=== PATIENT | male | born 1955 | race Caucasian/White ===

== ENCOUNTER 2017-09-30 08:38 | Day surgery (SDC) | payer OTHER ==
[~2017-09-30] VITALS: Ht 182.9 cm; Wt 95.3 kg
[~2017-09-30 08:38] MED LIST: AMLO10TA PO; ASPI-1265 PO; FURO-150 PO; LEVO50TA8 PO; MULT-1179 PO; OMEP-84 PO; RAMI10CA44 PO
[2017-09-30 09:19] LABS: BASOPHILS % (AUTO) 0.6 % (0-1); EOSINOPHILS # (AUTO) 0.5 X10'3 (0-0.9); EOSINOPHILS % (AUTO) 7.3 % (0-6); HEMATOCRIT 42.8 % (42.0-52.0); HEMOGLOBIN 14.9 g/dl (14.0-17.9); LYMPHOCYTES # (AUTO) 1.9 X10'3 (1.1-4.8); LYMPHOCYTES % (AUTO) 25.6 % (21-51); MEAN CORPUSCULAR HEMOGLOBIN 35.5 PG (27.0-31.0); MEAN CORPUSCULAR HGB CONC 34.9 % (33.0-36.5); MEAN CORPUSCULAR VOLUME 101.7 FL (78-98); MEAN PLATELET VOLUME 8.8 FL (7.4-10.4); MONOCYTES # (AUTO) 0.5 X10'3 (0-0.9); NEUTROPHILS # (AUTO) 4.4 X10'3 (1.8-7.7); NEUTROPHILS % (AUTO) 59.5 % (42-75); PLATELET COUNT 151 X10'3 (140-440); RED BLOOD COUNT 4.21 X10'6 (4.70-6.10); RED CELL DISTRIBUTION WIDTH 12.1 % (11.5-14.5); WHITE BLOOD COUNT 7.4 X10'3 (4.5-11.0)
[2017-09-30 09:30] VITALS: BP 133/92
[2017-09-30 09:43] VITALS: BP 139/103
[2017-09-30 09:48] VITALS: BP 146/95
[2017-09-30 09:53] VITALS: BP 142/97
[2017-09-30 09:53] LABS: ALANINE AMINOTRANSFERASE 47 U/L (12-78); ALBUMIN/GLOBULIN RATIO 1.4 (1.1-1.5); ALKALINE PHOSPHATASE 74 IU/L (46-116); ANION GAP 11 (8-16); ASPARTATE AMINO TRANSFERASE 31 U/L (10-37); BILIRUBIN,TOTAL 0.6 MG/DL (0.1-1.0); BLOOD UREA NITROGEN 17 MG/DL (7-18); BUN/CREATININE RATIO 19.5 (5.4-32.0); CALCIUM 8.8 MG/DL (8.5-10.1); CHLORIDE 103 MMOL/L (99-107); CHOL/HDL RATIO 2.7 (0.00-4.99); CHOLESTEROL 138 MG/DL (0-200); CREATININE 0.87 MG/DL (0.60-1.10); FERRITIN 134 NG/ML (26-388); GLUCOSE 110 MG/DL (70-104); HDL CHOLESTEROL 52 MG/DL (35-60); LDL CHOLESTEROL 80 MG/DL (50-100); POTASSIUM 4.3 MMOL/L (3.5-5.1); SODIUM 140 MMOL/L (135-145); TOTAL PROTEIN 6.9 G/DL (6.4-8.2); TRIGLYCERIDES 80 MG/DL (20-135); eGFR 89 ML/MIN
[2017-09-30 09:58] VITALS: BP 138/85
[2017-09-30 10:00] VITALS: BP 142/98
[2017-10-01 07:16] LABS: % FREE PSA 37.5 % (.); PSA, FREE 0.3 ng/mL
== END 2017-09-30 10:05 | disposition home or self-care (01) ==
LOC: SSTAY O 08:38
PROVIDERS: ATTEND Specialist
DX: E83.119 Hemochromatosis, unspecified (principal)
CPT/HCPCS: 36415; 80053; 80061; 82728; 84153; 84154; 84439; 84443; 85025; 99195; A6449

== ENCOUNTER 2017-10-07 09:01 | Day surgery (SDC) | payer OTHER ==
[2017-10-07 09:21] VITALS: BP 149/72
[2017-10-07 09:43] LABS: HEMATOCRIT 42.5 % (42.0-52.0); HEMOGLOBIN 14.8 g/dl (14.0-17.9); MEAN CORPUSCULAR HEMOGLOBIN 35.5 PG (27.0-31.0); MEAN CORPUSCULAR HGB CONC 34.9 % (33.0-36.5); MEAN CORPUSCULAR VOLUME 101.8 FL (78-98); MEAN PLATELET VOLUME 8.9 FL (7.4-10.4); PLATELET COUNT 151 X10'3 (140-440); RED BLOOD COUNT 4.18 X10'6 (4.70-6.10); RED CELL DISTRIBUTION WIDTH 12.4 % (11.5-14.5); WHITE BLOOD COUNT 6.8 X10'3 (4.5-11.0)
[2017-10-07 09:55] VITALS: BP 153/106
[2017-10-07 10:00] VITALS: BP 154/112
[2017-10-07 10:04] VITALS: BP 164/109
[2017-10-07 10:09] VITALS: BP 168/88
== END 2017-10-07 10:14 | disposition home or self-care (01) ==
LOC: SSTAY O 09:01
PROVIDERS: ATTEND Specialist
DX: E83.119 Hemochromatosis, unspecified (principal)
CPT/HCPCS: 36415; 85027; 99195

== ENCOUNTER 2017-10-14 08:46 | Day surgery (SDC) | payer OTHER ==
[~2017-10-14] VITALS: Ht 182.9 cm; Wt 93.0 kg
[2017-10-14 09:07] LABS: HEMATOCRIT 43.4 % (42.0-52.0); HEMOGLOBIN 15.2 g/dl (14.0-17.9); MEAN CORPUSCULAR HEMOGLOBIN 35.3 PG (27.0-31.0); MEAN CORPUSCULAR HGB CONC 34.9 % (33.0-36.5); MEAN CORPUSCULAR VOLUME 101.2 FL (78-98); MEAN PLATELET VOLUME 8.4 FL (7.4-10.4); PLATELET COUNT 182 X10'3 (140-440); RED BLOOD COUNT 4.29 X10'6 (4.70-6.10); RED CELL DISTRIBUTION WIDTH 12.5 % (11.5-14.5); WHITE BLOOD COUNT 8.7 X10'3 (4.5-11.0)
[2017-10-14 09:09] VITALS: BP 166/117
[2017-10-14 09:23] VITALS: BP 158/111
[2017-10-14 09:28] VITALS: BP 164/116
[2017-10-14 09:33] VITALS: BP 159/111
[2017-10-14 09:38] VITALS: BP 165/110
== END 2017-10-14 09:40 | disposition home or self-care (01) ==
LOC: SSTAY O 08:46
PROVIDERS: ATTEND Specialist
DX: E83.119 Hemochromatosis, unspecified (principal)
CPT/HCPCS: 36415; 85027; 99195

== ENCOUNTER 2017-11-18 08:48 | Day surgery (SDC) | payer OTHER ==
[~2017-11-18] VITALS: Ht 182.9 cm; Wt 95.5 kg
[2017-11-18 09:18] VITALS: BP 170/110
[2017-11-18 09:18] LABS: BASOPHILS % (AUTO) 0.4 % (0-1); EOSINOPHILS # (AUTO) 0.3 X10'3 (0-0.9); EOSINOPHILS % (AUTO) 4.8 % (0-6); HEMATOCRIT 45.5 % (42.0-52.0); HEMOGLOBIN 15.9 g/dl (14.0-17.9); LYMPHOCYTES # (AUTO) 1.7 X10'3 (1.1-4.8); LYMPHOCYTES % (AUTO) 24.9 % (21-51); MEAN CORPUSCULAR HEMOGLOBIN 33.5 PG (27.0-31.0); MEAN CORPUSCULAR VOLUME 95.6 FL (78-98); MEAN PLATELET VOLUME 8.9 FL (7.4-10.4); MONOCYTES # (AUTO) 0.5 X10'3 (0-0.9); MONOCYTES % (AUTO) 7.2 % (2-12); NEUTROPHILS # (AUTO) 4.2 X10'3 (1.8-7.7); NEUTROPHILS % (AUTO) 62.7 % (42-75); PLATELET COUNT 166 X10'3 (140-440); RED BLOOD COUNT 4.76 X10'6 (4.70-6.10); RED CELL DISTRIBUTION WIDTH 12.9 % (11.5-14.5); WHITE BLOOD COUNT 6.7 X10'3 (4.5-11.0)
[2017-11-18 09:32] VITALS: BP 161/112
[2017-11-18 09:36] VITALS: BP 162/114
[2017-11-18 09:41] VITALS: BP 156/113
[2017-11-18 09:46] VITALS: BP 159/114
[2017-11-18 09:50] VITALS: BP 162/105
[2017-11-18 09:51] LABS: ALBUMIN 4.3 G/DL (3.4-5.0); ANION GAP 12 (8-16); BILIRUBIN,TOTAL 0.6 MG/DL (0.1-1.0); BLOOD UREA NITROGEN 18 MG/DL (7-18); BUN/CREATININE RATIO 20.5 (5.4-32.0); CHLORIDE 104 MMOL/L (99-107); CREATININE 0.88 MG/DL (0.60-1.10); FERRITIN 43 NG/ML (26-388); GLUCOSE 122 MG/DL (70-104); SODIUM 141 MMOL/L (135-145); TOTAL CARBON DIOXIDE 24.7 MMOL/L (24-32); TOTAL PROTEIN 7.3 G/DL (6.4-8.2); eGFR 87 ML/MIN
[2017-11-18 09:52] LABS: ALANINE AMINOTRANSFERASE 49 U/L (12-78); ALBUMIN/GLOBULIN RATIO 1.4 (1.1-1.5); ALKALINE PHOSPHATASE 84 IU/L (46-116); ASPARTATE AMINO TRANSFERASE 34 U/L (10-37); POTASSIUM 4.1 MMOL/L (3.5-5.1)
== END 2017-11-18 09:55 | disposition home or self-care (01) ==
LOC: SSTAY O 08:48
PROVIDERS: ATTEND Specialist
DX: E83.119 Hemochromatosis, unspecified (principal); I10 Essential (primary) hypertension; K21.9 Gastro-esophageal reflux disease without esophagitis; M19.90 Unspecified osteoarthritis, unspecified site; F32.9 Major depressive disorder, single episode, unspecified; F41.9 Anxiety disorder, unspecified; Z90.49 Acquired absence of other specified parts of digestive tract; Z87.891 Personal history of nicotine dependence; Z98.890 Other specified postprocedural states; Z72.89 Other problems related to lifestyle; Z79.82 Long term (current) use of aspirin; Z79.899 Other long term (current) drug therapy
CPT/HCPCS: 36415; 80053; 82103; 82728; 85025; 99195

== ENCOUNTER 2019-01-29 08:16 | Outpatient (CLI) | payer OTHER ==
[2019-01-29 09:00] LABS: BASOPHILS # (AUTO) 0.1 X10'3 (0-0.2); BASOPHILS % (AUTO) 0.8 % (0-1); EOSINOPHILS # (AUTO) 0.4 X10'3 (0-0.9); EOSINOPHILS % (AUTO) 5.7 % (0-6); HEMATOCRIT 46.2 % (42.0-52.0); HEMOGLOBIN 16.4 g/dl (14.0-17.9); LYMPHOCYTES # (AUTO) 1.9 X10'3 (1.1-4.8); LYMPHOCYTES % (AUTO) 27.2 % (21-51); MEAN CORPUSCULAR HEMOGLOBIN 34.9 PG (27.0-31.0); MEAN CORPUSCULAR HGB CONC 35.5 g/dL (33.0-36.5); MEAN CORPUSCULAR VOLUME 98.4 FL (78-98); MEAN PLATELET VOLUME 9.1 FL (7.4-10.4); MONOCYTES # (AUTO) 0.5 X10'3 (0-0.9); MONOCYTES % (AUTO) 7.2 % (2-12); NEUTROPHILS # (AUTO) 4.2 X10'3 (1.8-7.7); NEUTROPHILS % (AUTO) 59.1 % (42-75); PLATELET COUNT 166 X10'3 (140-440); RED CELL DISTRIBUTION WIDTH 13.2 % (11.5-14.5); WHITE BLOOD COUNT 7.2 X10'3 (4.5-11.0)
[2019-01-29 09:26] LABS: % IRON SATURATION 92 % (11-46); ALANINE AMINOTRANSFERASE 56 U/L (12-78); ALBUMIN 4.2 G/DL (3.4-5.0); ALBUMIN/GLOBULIN RATIO 1.5 (1.1-1.5); ALKALINE PHOSPHATASE 83 IU/L (46-116); ANION GAP 6 (8-16); ASPARTATE AMINO TRANSFERASE 30 U/L (10-37); BILIRUBIN,TOTAL 0.7 MG/DL (0.1-1.0); BLOOD UREA NITROGEN 22 MG/DL (7-18); BUN/CREATININE RATIO 26.5 (5.4-32.0); CHLORIDE 105 MMOL/L (99-107); CHOL/HDL RATIO 3.3 (0.00-4.99); CHOLESTEROL 144 MG/DL (0-200); CREATININE 0.83 MG/DL (0.60-1.10); FERRITIN 143 NG/ML (26-388); GLUCOSE 121 MG/DL (70-104); HDL CHOLESTEROL 43 MG/DL (35-60); IRON 303 UG/DL (53-167); LDL CHOLESTEROL 86 MG/DL (50-100); SODIUM 140 MMOL/L (135-145); TOTAL CARBON DIOXIDE 28.8 MMOL/L (24-32); TOTAL IRON BINDING CAPACITY 328 UG/DL (259-388); TRIGLYCERIDES 183 MG/DL (20-135); eGFR > 90 ML/MIN
[2019-01-29 09:33] LABS: HEMOGLOBIN A1C 5.6 % (4.5-6.2)
[2019-01-30 08:10] LABS: PSA, ULTRASENSITIVE W/O SERIAL 0.847 ng/mL (0.000-4.000)
[2019-01-30 13:25] LABS: AFP,SERUM, TUMOR MARKER 2.4 ng/mL (0.0-8.3)
== END 2019-01-29 23:59 | disposition home or self-care (01) ==
LOC: RAD 08:16
PROVIDERS: ATTEND Specialist
DX: R16.0 Hepatomegaly, not elsewhere classified (principal); E83.119 Hemochromatosis, unspecified; R94.5 Abnormal results of liver function studies; I10 Essential (primary) hypertension; Z90.49 Acquired absence of other specified parts of digestive tract; Z87.891 Personal history of nicotine dependence
CPT/HCPCS: 36415; 76700; 80053; 80061; 82103; 82728; 83036; 83540; 83550; 84153; 85025

== ENCOUNTER 2019-02-03 11:23 | Outpatient (CLI) | payer OTHER | END 2019-02-03 23:59 | disposition home or self-care (01) | LOC: LAB 11:23 | PROVIDERS: ATTEND Specialist | DX: E03.9 Hypothyroidism, unspecified (principal); I10 Essential (primary) hypertension; Z87.891 Personal history of nicotine dependence | CPT/HCPCS: 36415; 84439; 84443 ==

== ENCOUNTER 2019-02-25 08:56 | Day surgery (SDC) | payer OTHER ==
[2019-02-25 09:30] VITALS: BP 165/104
[2019-02-25 10:07] LABS: HEMATOCRIT 45.7 % (42.0-52.0); HEMOGLOBIN 16.2 g/dl (14.0-17.9); MEAN CORPUSCULAR HEMOGLOBIN 34.5 PG (27.0-31.0); MEAN CORPUSCULAR HGB CONC 35.5 g/dL (33.0-36.5); MEAN CORPUSCULAR VOLUME 97.1 FL (78-98); MEAN PLATELET VOLUME 9.2 FL (7.4-10.4); PLATELET COUNT 191 X10'3 (140-440); RED BLOOD COUNT 4.71 X10'6 (4.70-6.10); WHITE BLOOD COUNT 7.7 X10'3 (4.5-11.0)
[2019-02-25 10:21] VITALS: BP 151/106
[2019-02-25 10:26] VITALS: BP 148/99
[2019-02-25 10:31] VITALS: BP 149/100
[2019-02-25 10:36] VITALS: BP 147/98
[2019-02-25 10:41] VITALS: BP 134/105
== END 2019-02-25 10:50 | disposition home or self-care (01) ==
LOC: SSTAY O 08:56
PROVIDERS: ATTEND Specialist
DX: E83.119 Hemochromatosis, unspecified (principal)
CPT/HCPCS: 36415; 85027; 99195

== ENCOUNTER 2019-03-11 09:47 | Day surgery (SDC) | payer OTHER ==
[~2019-03-11] VITALS: Ht 182.9 cm; Wt 95.4 kg
[2019-03-11 10:13] LABS: HEMATOCRIT 42.9 % (42.0-52.0); MEAN CORPUSCULAR HEMOGLOBIN 34.2 PG (27.0-31.0); MEAN CORPUSCULAR VOLUME 97.9 FL (78-98); MEAN PLATELET VOLUME 8.9 FL (7.4-10.4); PLATELET COUNT 173 X10'3 (140-440); RED BLOOD COUNT 4.38 X10'6 (4.70-6.10); RED CELL DISTRIBUTION WIDTH 12.7 % (11.5-14.5); WHITE BLOOD COUNT 7.1 X10'3 (4.5-11.0)
[2019-03-11 10:25] VITALS: BP 135/88
[2019-03-11 10:50] VITALS: BP 132/91
[2019-03-11 10:55] VITALS: BP 129/90
[2019-03-11 11:00] VITALS: BP 133/86
[2019-03-11 11:05] VITALS: BP 131/91
== END 2019-03-11 11:10 | disposition home or self-care (01) ==
LOC: SSTAY O 09:47
PROVIDERS: ATTEND Specialist
DX: E83.119 Hemochromatosis, unspecified (principal)
CPT/HCPCS: 36415; 85027; 99195

== ENCOUNTER 2019-04-08 08:47 | Day surgery (SDC) | payer OTHER, MEDICARE ==
[2019-04-08] VITALS (7 sets, daily range): BP systolic 126–135; BP diastolic 76–84
[~2019-04-08 08:47] MED LIST changes: -FURO-150 PO
[2019-04-08 09:41] LABS: HEMOGLOBIN 15.2 g/dl (14.0-17.9); MEAN CORPUSCULAR HEMOGLOBIN 33.9 PG (27.0-31.0); MEAN CORPUSCULAR HGB CONC 34.5 g/dL (33.0-36.5); MEAN CORPUSCULAR VOLUME 98.1 FL (78-98); MEAN PLATELET VOLUME 9.6 FL (7.4-10.4); PLATELET COUNT 170 X10'3 (140-440); RED BLOOD COUNT 4.48 X10'6 (4.70-6.10); RED CELL DISTRIBUTION WIDTH 12.5 % (11.5-14.5); WHITE BLOOD COUNT 6.8 X10'3 (4.5-11.0)
== END 2019-04-08 08:55 | disposition home or self-care (01) ==
LOC: SSTAY O 08:47
PROVIDERS: ATTEND Specialist
DX: E83.119 Hemochromatosis, unspecified (principal)
CPT/HCPCS: 36415; 85027; 99195

== ENCOUNTER 2019-04-22 08:24 | Day surgery (SDC) | payer MEDICARE, OTHER ==
[2019-04-22] VITALS (9 sets, daily range): BP systolic 120–127; BP diastolic 72–93
[~2019-04-22] VITALS: Ht 182.9 cm; Wt 93.7 kg
[2019-04-22 09:15] LABS: BASOPHILS # (AUTO) 0.1 X10'3 (0-0.2); EOSINOPHILS # (AUTO) 0.5 X10'3 (0-0.9); EOSINOPHILS % (AUTO) 5.9 % (0-6); HEMATOCRIT 40.9 % (42.0-52.0); HEMOGLOBIN 14.1 g/dl (14.0-17.9); LYMPHOCYTES # (AUTO) 2.2 X10'3 (1.1-4.8); LYMPHOCYTES % (AUTO) 27.9 % (21-51); MEAN CORPUSCULAR HEMOGLOBIN 33.2 PG (27.0-31.0); MEAN CORPUSCULAR HGB CONC 34.5 g/dL (33.0-36.5); MEAN CORPUSCULAR VOLUME 96.2 FL (78-98); MEAN PLATELET VOLUME 9.5 FL (7.4-10.4); MONOCYTES # (AUTO) 0.7 X10'3 (0-0.9); MONOCYTES % (AUTO) 8.9 % (2-12); NEUTROPHILS # (AUTO) 4.5 X10'3 (1.8-7.7); NEUTROPHILS % (AUTO) 56.3 % (42-75); PLATELET COUNT 177 X10'3 (140-440); RED BLOOD COUNT 4.25 X10'6 (4.70-6.10); RED CELL DISTRIBUTION WIDTH 12.2 % (11.5-14.5); WHITE BLOOD COUNT 7.9 X10'3 (4.5-11.0)
--- NOTE | 2019-04-22 10:30 | NUR ---
PRE OP VITALS OBTAINED, 18g CATHETER PLACED TO RIGHT ANTECUBITAL, [id number]: THERAPEUTIC PHLEBOTOMY DRAW WITH 60ML SYRINGE n3=671+ ML BLOOD DRAWN AND DISCARDED IN RED WASTE. PT TOLERATED PROCEDURE WELL, VS REMAINED STABLE THROUGHOUT. SITE PRESSURE WRAPPED WITH 2X2 AND COBAN. PT D/C AMBULATORY W/BASELINE GAIT, DENIES PAIN/DIZZINESS/SOB
== END 2019-04-22 10:30 | disposition home or self-care (01) ==
LOC: SSTAY O 08:24
PROVIDERS: ATTEND Specialist
DX: E83.119 Hemochromatosis, unspecified (principal)
CPT/HCPCS: 36415; 85025; 99195

== ENCOUNTER 2019-05-14 10:10 | Outpatient (CLI) | payer OTHER, MEDICARE ==
[2019-05-14 11:32] LABS: % IRON SATURATION 16 % (11-46); IRON 60 UG/DL (53-167); TOTAL IRON BINDING CAPACITY 369 UG/DL (259-388)
[2019-05-14 11:34] LABS: BASOPHILS # (AUTO) 0.1 X10'3 (0-0.2); BASOPHILS % (AUTO) 0.8 % (0-1); EOSINOPHILS # (AUTO) 0.3 X10'3 (0-0.9); EOSINOPHILS % (AUTO) 3.6 % (0-6); HEMATOCRIT 41.6 % (42.0-52.0); LYMPHOCYTES # (AUTO) 2.1 X10'3 (1.1-4.8); LYMPHOCYTES % (AUTO) 28.6 % (21-51); MEAN CORPUSCULAR HEMOGLOBIN 30.9 PG (27.0-31.0); MEAN CORPUSCULAR HGB CONC 33.6 g/dL (33.0-36.5); MEAN PLATELET VOLUME 9.1 FL (7.4-10.4); MONOCYTES # (AUTO) 0.6 X10'3 (0-0.9); MONOCYTES % (AUTO) 7.8 % (2-12); NEUTROPHILS # (AUTO) 4.4 X10'3 (1.8-7.7); NEUTROPHILS % (AUTO) 59.2 % (42-75); PLATELET COUNT 196 X10'3 (140-440); RED BLOOD COUNT 4.53 X10'6 (4.70-6.10); RED CELL DISTRIBUTION WIDTH 12.8 % (11.5-14.5); WHITE BLOOD COUNT 7.5 X10'3 (4.5-11.0)
[2019-05-14 11:44] LABS: ALANINE AMINOTRANSFERASE 36 U/L (12-78); ALBUMIN 4.2 G/DL (3.4-5.0); ALBUMIN/GLOBULIN RATIO 1.4 (1.1-1.5); ALKALINE PHOSPHATASE 74 IU/L (46-116); ANION GAP 7 (8-16); ASPARTATE AMINO TRANSFERASE 18 U/L (10-37); BILIRUBIN,TOTAL 0.5 MG/DL (0.1-1.0); BLOOD UREA NITROGEN 17 MG/DL (7-18); BUN/CREATININE RATIO 21.8 (5.4-32.0); CALCIUM 9.3 MG/DL (8.5-10.1); CHLORIDE 105 MMOL/L (99-107); CREATININE 0.78 MG/DL (0.60-1.10); FERRITIN 12 NG/ML (26-388); GLUCOSE 103 MG/DL (70-104); POTASSIUM 4.1 MMOL/L (3.5-5.1); SODIUM 142 MMOL/L (135-145); TOTAL CARBON DIOXIDE 30.5 MMOL/L (24-32); TOTAL PROTEIN 7.3 G/DL (6.4-8.2); eGFR > 90 ML/MIN
== END 2019-05-14 23:59 | disposition home or self-care (01) ==
LOC: LAB 10:10
PROVIDERS: ATTEND Specialist
DX: E83.119 Hemochromatosis, unspecified (principal); R94.5 Abnormal results of liver function studies; I10 Essential (primary) hypertension; Z87.891 Personal history of nicotine dependence
CPT/HCPCS: 36415; 80053; 82728; 83540; 83550; 85025

== ENCOUNTER 2020-03-13 12:04 | Outpatient (CLI) | payer OTHER, MEDICARE ==
[2020-03-13 12:55] LABS: CLARITY,URINE CLEAR (Clear); GLUCOSE, URINE NEGATIVE (Neg); KETONES,URINE NEGATIVE (Neg); LEUKOCYTE ESTERASE ,URINE NEGATIVE (Neg); NITRITES, URINE NEGATIVE (Neg); OCCULT BLOOD,URINE NEGATIVE (Neg); PH,URINE 6.5 (4.8-8.0); PROTEIN,URINE NEGATIVE (Neg); UROBILINOGEN,URINE 0.2 E.U/dL (0.2-1.0)
[2020-03-13 12:57] LABS: BASOPHILS # (AUTO) 0.1 X10'3 (0-0.2); BASOPHILS % (AUTO) 0.8 % (0-1); EOSINOPHILS # (AUTO) 0.4 X10'3 (0-0.9); EOSINOPHILS % (AUTO) 4.7 % (0-6); HEMATOCRIT 46.6 % (42.0-52.0); HEMOGLOBIN 15.7 g/dl (14.0-17.9); LYMPHOCYTES # (AUTO) 2.3 X10'3 (1.1-4.8); LYMPHOCYTES % (AUTO) 28.6 % (21-51); MEAN CORPUSCULAR HEMOGLOBIN 31.8 PG (27.0-31.0); MEAN CORPUSCULAR HGB CONC 33.7 g/dL (33.0-36.5); MEAN CORPUSCULAR VOLUME 94.3 FL (78-98); MEAN PLATELET VOLUME 9.4 FL (7.4-10.4); MONOCYTES # (AUTO) 0.6 X10'3 (0-0.9); NEUTROPHILS # (AUTO) 4.6 X10'3 (1.8-7.7); NEUTROPHILS % (AUTO) 57.9 % (42-75); PLATELET COUNT 158 X10'3 (140-440); RED BLOOD COUNT 4.94 X10'6 (4.70-6.10); RED CELL DISTRIBUTION WIDTH 14.2 % (11.5-14.5)
[2020-03-13 13:00] LABS: COLOR,URINE DARK YELLOW (Yellow); UA COLLECTION TYPE CLN CATCH MIDSTREAM
[2020-03-13 13:27] LABS: ALANINE AMINOTRANSFERASE 32 U/L (12-78); ALBUMIN 4.1 G/DL (3.4-5.0); ALBUMIN/GLOBULIN RATIO 1.5 (1.1-1.5); ALKALINE PHOSPHATASE 84 IU/L (46-116); ANION GAP 9 (8-16); ASPARTATE AMINO TRANSFERASE 15 U/L (10-37); BILIRUBIN,TOTAL 0.7 MG/DL (0.1-1.0); BLOOD UREA NITROGEN 15 MG/DL (7-18); CALCIUM 8.7 MG/DL (8.5-10.1); CHLORIDE 105 MMOL/L (99-107); CHOL/HDL RATIO 4.4 (0.00-4.99); CHOLESTEROL 175 MG/DL (0-200); CREATININE 0.88 MG/DL (0.60-1.10); FERRITIN 29 NG/ML (26-388); GLUCOSE 123 MG/DL (70-104); HDL CHOLESTEROL 40 MG/DL (35-60); LDL CHOLESTEROL 105 MG/DL (50-100); SODIUM 142 MMOL/L (135-145); TOTAL CARBON DIOXIDE 28.2 MMOL/L (24-32); TOTAL PROTEIN 6.9 G/DL (6.4-8.2); TRIGLYCERIDES 172 MG/DL (20-135); eGFR 87 ML/MIN
[2020-03-13 14:04] LABS: % IRON SATURATION 64 % (11-46); IRON 184 UG/DL (53-167); TOTAL IRON BINDING CAPACITY 289 UG/DL (259-388)
[2020-03-15 13:11] LABS: TRANSFERRIN 253 mg/dL (177-329)
== END 2020-03-13 23:59 | disposition home or self-care (01) ==
LOC: LAB 12:04
PROVIDERS: ATTEND Family Medicine
DX: Z00.00 Encounter for general adult medical examination without abnormal findings (principal)
CPT/HCPCS: 36415; 80053; 80061; 81003; 82607; 82728; 82746; 83036; 83540; 83550; 84439; 84443; 84466; 85025

== ENCOUNTER 2020-07-05 09:20 | Day surgery (SDC) | payer BC, MEDICARE ==
[~2020-07-05] VITALS: Ht 180.3 cm; Wt 93.2 kg
[2020-07-05] MEDS ORDERED: MIDAZolam 5mg/5ml vial ONE (09:25)
[2020-07-05] MEDS ORDERED: fentaNYL/PF 50MCG/1 ML 2ML syringe ONE (09:25)
[2020-07-05 09:26] VITALS: BP 167/106
[2020-07-05 10:40] VITALS: BP 145/91
[2020-07-05 10:50] VITALS: BP 150/83
[2020-07-05 11:00] VITALS: BP 131/84
[2020-07-05 11:10] VITALS: BP 128/89
== END 2020-07-05 11:30 | disposition home or self-care (01) ==
LOC: GI LAB 09:20
PROVIDERS: ATTEND Internal Medicine Gastroenterology
DX: Z12.11 Encounter for screening for malignant neoplasm of colon (principal); D12.2 Benign neoplasm of ascending colon; D12.3 Benign neoplasm of transverse colon; K63.5 Polyp of colon; K57.30 Diverticulosis of large intestine without perforation or abscess without bleeding
CPT/HCPCS: 45385; 99152; 99153; C1773; J2250; J3010; J7040; 45380; A4620

== ENCOUNTER 2020-10-26 10:12 | Outpatient (CLI) | payer BC, MEDICARE ==
[2020-10-26 10:49] LABS: BASOPHILS # (AUTO) 0.1 X10'3 (0-0.2); BASOPHILS % (AUTO) 1.2 % (0-1); EOSINOPHILS # (AUTO) 0.5 X10'3 (0-0.9); EOSINOPHILS % (AUTO) 5.9 % (0-6); HEMATOCRIT 46.3 % (42.0-52.0); LYMPHOCYTES # (AUTO) 2.1 X10'3 (1.1-4.8); LYMPHOCYTES % (AUTO) 26.8 % (21-51); MEAN CORPUSCULAR HEMOGLOBIN 34.1 PG (27.0-31.0); MEAN CORPUSCULAR HGB CONC 34.5 g/dL (33.0-36.5); MEAN CORPUSCULAR VOLUME 98.7 FL (78-98); MEAN PLATELET VOLUME 8.8 FL (7.4-10.4); MONOCYTES # (AUTO) 0.7 X10'3 (0-0.9); NEUTROPHILS # (AUTO) 4.5 X10'3 (1.8-7.7); NEUTROPHILS % (AUTO) 57.1 % (42-75); PLATELET COUNT 173 X10'3 (140-440); RED BLOOD COUNT 4.69 X10'6 (4.70-6.10); RED CELL DISTRIBUTION WIDTH 13.9 % (11.5-14.5); WHITE BLOOD COUNT 7.9 X10'3 (4.5-11.0)
[2020-10-26 11:16] LABS: ALANINE AMINOTRANSFERASE 70 U/L (12-78); ALBUMIN 4.2 G/DL (3.4-5.0); ALBUMIN/GLOBULIN RATIO 1.2 (1.1-1.5); ALKALINE PHOSPHATASE 79 IU/L (46-116); ANION GAP 8 (8-16); ASPARTATE AMINO TRANSFERASE 45 U/L (10-37); BILIRUBIN,TOTAL 0.6 MG/DL (0.1-1.0); BLOOD UREA NITROGEN 17 MG/DL (7-18); BUN/CREATININE RATIO 20.2 (5.4-32.0); CHLORIDE 104 MMOL/L (99-107); CREATININE 0.84 MG/DL (0.60-1.10); FERRITIN 54 NG/ML (26-388); GLUCOSE 135 MG/DL (70-104); SODIUM 142 MMOL/L (135-145); TOTAL CARBON DIOXIDE 30.1 MMOL/L (24-32); TOTAL PROTEIN 7.7 G/DL (6.4-8.2); eGFR > 90 ML/MIN
== END 2020-10-26 23:59 | disposition home or self-care (01) ==
LOC: LAB 10:12
PROVIDERS: ATTEND Family Medicine
DX: E83.119 Hemochromatosis, unspecified (principal)
CPT/HCPCS: 36415; 80053; 82728; 85025

== ENCOUNTER 2021-03-06 09:16 | Outpatient (CLI) | payer BC, MEDICARE | END 2021-03-06 23:59 | disposition home or self-care (01) | LOC: RAD 09:16 | PROVIDERS: ATTEND Family Medicine | DX: M19.072 Primary osteoarthritis, left ankle and foot (principal); M19.071 Primary osteoarthritis, right ankle and foot; M77.31 Calcaneal spur, right foot | CPT/HCPCS: 73610; 73630 ==

== ENCOUNTER 2021-03-27 07:51 | Outpatient (CLI) | payer BC, MEDICARE ==
[2021-03-27 08:47] LABS: CLARITY,URINE CLEAR (Clear); COLOR,URINE YELLOW (Yellow); GLUCOSE, URINE NEGATIVE (Neg); KETONES,URINE NEGATIVE (Neg); LEUKOCYTE ESTERASE ,URINE NEGATIVE (Neg); NITRITES, URINE NEGATIVE (Neg); OCCULT BLOOD,URINE TRACE-INTACT (Neg); PROTEIN,URINE NEGATIVE (Neg); UROBILINOGEN,URINE 0.2 E.U/dL (0.2-1.0)
[2021-03-27 08:48] LABS: BASOPHILS # (AUTO) 0.1 X10'3 (0-0.2); BASOPHILS % (AUTO) 0.7 % (0-1); EOSINOPHILS # (AUTO) 0.6 X10'3 (0-0.9); EOSINOPHILS % (AUTO) 7.9 % (0-6); HEMATOCRIT 45.9 % (42.0-52.0); HEMOGLOBIN 15.9 g/dl (14.0-17.9); LYMPHOCYTES % (AUTO) 24.9 % (21-51); MEAN CORPUSCULAR HEMOGLOBIN 34.4 PG (27.0-31.0); MEAN CORPUSCULAR HGB CONC 34.6 g/dL (33.0-36.5); MEAN CORPUSCULAR VOLUME 99.5 FL (78-98); MONOCYTES # (AUTO) 0.7 X10'3 (0-0.9); MONOCYTES % (AUTO) 9.2 % (2-12); NEUTROPHILS # (AUTO) 4.6 X10'3 (1.8-7.7); NEUTROPHILS % (AUTO) 57.3 % (42-75); PLATELET COUNT 194 X10'3 (140-440); RED BLOOD COUNT 4.61 X10'6 (4.70-6.10); RED CELL DISTRIBUTION WIDTH 13.4 % (11.5-14.5); WHITE BLOOD COUNT 8.1 X10'3 (4.5-11.0)
[2021-03-27 08:51] LABS: UA COLLECTION TYPE CLN CATCH MIDSTREAM
[2021-03-27 08:52] LABS: MUCUS STRANDS FEW /LPF (Neg); SQUAMOUS EPITHELIAL CELL,UR FEW /LPF (FEW)
[2021-03-27 08:53] LABS: BACTERIA,URINE 1+ /HPF (Neg); WBC,URINE 0-4 /HPF (0-4)
[2021-03-27 09:12] LABS: IRON 137 UG/DL (53-167)
[2021-03-27 09:16] LABS: % IRON SATURATION 46 % (11-46); TOTAL IRON BINDING CAPACITY 295 UG/DL (259-388)
[2021-03-27 09:25] LABS: ALANINE AMINOTRANSFERASE 42 U/L (12-78); ALBUMIN/GLOBULIN RATIO 1.4 (1.1-1.5); ALKALINE PHOSPHATASE 75 IU/L (46-116); ANION GAP 7 (8-16); ASPARTATE AMINO TRANSFERASE 21 U/L (10-37); BILIRUBIN,TOTAL 0.5 MG/DL (0.1-1.0); BLOOD UREA NITROGEN 17 MG/DL (7-18); BUN/CREATININE RATIO 21.3 (5.4-32.0); CALCIUM 8.7 MG/DL (8.5-10.1); CHLORIDE 104 MMOL/L (99-107); CHOL/HDL RATIO 4.1 (0.00-4.99); CHOLESTEROL 153 MG/DL (0-200); FERRITIN 61 NG/ML (26-388); GLUCOSE 113 MG/DL (70-104); HDL CHOLESTEROL 37 MG/DL (35-60); LDL CHOLESTEROL 97 MG/DL (50-100); POTASSIUM 3.9 MMOL/L (3.5-5.1); SODIUM 142 MMOL/L (135-145); TOTAL CARBON DIOXIDE 30.6 MMOL/L (24-32); TOTAL PROTEIN 6.8 G/DL (6.4-8.2); TRIGLYCERIDES 96 MG/DL (20-135); eGFR > 90 ML/MIN
[2021-03-28 10:50] LABS: TRANSFERRIN 220 mg/dL (177-329)
== END 2021-03-27 23:59 | disposition home or self-care (01) ==
LOC: LAB 07:51
PROVIDERS: ATTEND Family Medicine
DX: E83.119 Hemochromatosis, unspecified (principal); R80.9 Proteinuria, unspecified; I10 Essential (primary) hypertension; E78.5 Hyperlipidemia, unspecified; N40.1 Benign prostatic hyperplasia with lower urinary tract symptoms
CPT/HCPCS: 36415; 80053; 80061; 81001; 82607; 82728; 82746; 83540; 83550; 84153; 84439; 84443; 84466; 84550; 85025

== ENCOUNTER 2021-11-14 09:23 | Outpatient (CLI) | payer BC, MEDICARE ==
[2021-11-14 10:38] LABS: BASOPHILS % (AUTO) 0.7 % (0-1); EOSINOPHILS # (AUTO) 0.5 X10'3 (0-0.9); EOSINOPHILS % (AUTO) 7.6 % (0-6); HEMATOCRIT 46.4 % (42.0-52.0); LYMPHOCYTES # (AUTO) 1.9 X10'3 (1.1-4.8); LYMPHOCYTES % (AUTO) 25.9 % (21-51); MEAN CORPUSCULAR HEMOGLOBIN 34.7 PG (27.0-31.0); MEAN CORPUSCULAR HGB CONC 34.5 g/dL (33.0-36.5); MEAN CORPUSCULAR VOLUME 100.5 FL (78-98); MONOCYTES # (AUTO) 0.6 X10'3 (0-0.9); MONOCYTES % (AUTO) 8.1 % (2-12); NEUTROPHILS # (AUTO) 4.2 X10'3 (1.8-7.7); NEUTROPHILS % (AUTO) 57.7 % (42-75); PLATELET COUNT 177 X10'3 (140-440); RED BLOOD COUNT 4.62 X10'6 (4.70-6.10); RED CELL DISTRIBUTION WIDTH 13.4 % (11.5-14.5); WHITE BLOOD COUNT 7.2 X10'3 (4.5-11.0)
[2021-11-14 10:43] LABS: CLARITY,URINE CLEAR (Clear); COLOR,URINE YELLOW (Yellow); GLUCOSE, URINE NEGATIVE (Neg); KETONES,URINE NEGATIVE (Neg); LEUKOCYTE ESTERASE ,URINE NEGATIVE (Neg); NITRITES, URINE NEGATIVE (Neg); OCCULT BLOOD,URINE TRACE-INTACT (Neg); PROTEIN,URINE NEGATIVE (Neg); UROBILINOGEN,URINE 0.2 E.U/dL (0.2-1.0)
[2021-11-14 10:49] LABS: UA COLLECTION TYPE NON-SPECIFIED
[2021-11-14 10:51] LABS: SQUAMOUS EPITHELIAL CELL,UR FEW /LPF (FEW)
[2021-11-14 10:52] LABS: BACTERIA,URINE FEW /HPF (Neg); WBC,URINE 0-4 /HPF (0-4)
[2021-11-14 11:24] LABS: % IRON SATURATION 77 % (11-46); IRON 234 UG/DL (53-167); TOTAL IRON BINDING CAPACITY 303 UG/DL (259-388)
[2021-11-14 11:33] LABS: ALANINE AMINOTRANSFERASE 69 U/L (12-78); ALBUMIN 3.9 G/DL (3.4-5.0); ALBUMIN/GLOBULIN RATIO 1.3 (1.1-1.5); ANION GAP 9 (8-16); ASPARTATE AMINO TRANSFERASE 25 U/L (10-37); BILIRUBIN,TOTAL 0.6 MG/DL (0.1-1.0); BLOOD UREA NITROGEN 20 MG/DL (7-18); BUN/CREATININE RATIO 26.3 (5.4-32.0); CALCIUM 8.9 MG/DL (8.5-10.1); CHLORIDE 104 MMOL/L (99-107); CHOL/HDL RATIO 3.7 (0.00-4.99); CHOLESTEROL 172 MG/DL (0-200); CREATININE 0.76 MG/DL (0.60-1.10); FERRITIN 189 NG/ML (26-388); GLUCOSE 131 MG/DL (70-104); HDL CHOLESTEROL 46 MG/DL (35-60); LDL CHOLESTEROL 87 MG/DL (50-100); POTASSIUM 4.4 MMOL/L (3.5-5.1); SODIUM 141 MMOL/L (135-145); TOTAL CARBON DIOXIDE 28.2 MMOL/L (24-32); TOTAL PROTEIN 6.9 G/DL (6.4-8.2); TRIGLYCERIDES 195 MG/DL (20-135); eGFR > 90 ML/MIN
== END 2021-11-14 23:59 | disposition home or self-care (01) ==
LOC: RAD 09:23
PROVIDERS: ATTEND Family Medicine
DX: Z00.01 Encounter for general adult medical examination with abnormal findings (principal); R10.9 Unspecified abdominal pain; E83.119 Hemochromatosis, unspecified; N40.1 Benign prostatic hyperplasia with lower urinary tract symptoms; Z90.49 Acquired absence of other specified parts of digestive tract
CPT/HCPCS: 36415; 76700; 80053; 80061; 81001; 82728; 83540; 83550; 84439; 84443; 84466; 84550; 85025

== ENCOUNTER 2023-11-11 10:34 | Day surgery (SDC) | payer MEDICARE, OTHER ==
[~2023-11-11] VITALS: Ht 180.3 cm; Wt 93.0 kg
[2023-11-11] VITALS (14 sets, daily range): BP systolic 107–156; BP diastolic 70–95; PULSE 66–82; RESP 9–20; TEMP 98.4; O2SAT 92–100
[~2023-11-11 10:34] MED LIST changes: -AMLO10TA PO; +AMLO5TAB PO; -ASPI-1265 PO; +CEFD300C21 PO; +FLO0.4C PO; +MOMETASONE NAS; -MULT-1179 PO; +MUPI22OI30 TP; -OMEP-84 PO; +OMEP20CA16 PO; +ONDA4TAB12 PO
[2023-11-11] MEDS: cefazolin 2gm/D5W 100mL 100 ML IV ONE (11:24)
[2023-11-11] MEDS: ringers solution, lacted 1,000 ML IV SCH (11:24)
[2023-11-11] MEDS: tranexamic acid inj. 1,000 MG in normal saline IV soln 100ML IV ONE (11:25)
[2023-11-11] MEDS: famotidine 20mg tablet PO ONE (11:26)
[2023-11-11] MEDS: oxymetazoline 15 ML nasal spray NS SCH (12:16)
[2023-11-11] MEDS ORDERED: sevoflurane 250ml liquid IH ONE (12:42)
[2023-11-11] MEDS ORDERED: propofol 10mg/ml 20ml vial IV ONE (12:42)
[2023-11-11] MEDS ORDERED: labetalol 20mg/4ml (5mg/ml) syringe IV PRN (12:45)
[2023-11-11] MEDS ORDERED: ringers solution, lacted 1,000 ML IV SCH (12:45)
[2023-11-11] MEDS ORDERED: hydrALAZINE 20mg/ml inj. IV PRN (12:45)
[2023-11-11] MEDS ORDERED: morphine 4 MG/ML inj SYRINge IV PRN (12:45)
[2023-11-11] MEDS ORDERED: proCHLORperazine 10 MG/2 ml inj IV PRN (12:45)
[2023-11-11] MEDS ORDERED: meperidine/PF 25mg/ml syringe IV PRN ×2 (12:45)
[2023-11-11] MEDS ORDERED: ondansetron/PF 4mg/2ml inj IV PRN (12:45)
[2023-11-11] MEDS ORDERED: morphine 2 MG/ML inj. syringe IV PRN (12:45)
[2023-11-11] MEDS ORDERED: fentaNYL/PF 50MCG/1 ML 2ML syringe ONE (12:48)
[2023-11-11] MEDS ORDERED: midazolam 1 mg/ML 2ml injection ONE (13:05)
[2023-11-11] MEDS ORDERED: ondansetron/PF 4mg/2ml inj ONE (13:05)
[2023-11-11] MEDS ORDERED: dexamethasone sod phosphate 4mg/ml inj. ONE (13:06)
[2023-11-11] MEDS ORDERED: LIDOcaine 2% (20mg/ml) 5ml vial ONE (13:06)
[2023-11-11] MEDS ORDERED: 0.9 % SODIUM CHLORIDE 10 ML VIAL ONE (13:07)
[2023-11-11] MEDS ORDERED: ePHEDrine 50MG/ML INJ. ONE (13:07)
[2023-11-11] MEDS: cocaine 4% topical solution 4ml bottle ONE (13:40)
[2023-11-11] MEDS: LIDOcaine 1% w/EPI 1:100,000 inj. MDV 50 ML VIAL ONE (13:52)
[2023-11-11] MEDS: oxymetazoline 15 ML nasal spray NS ONE (13:53)
[2023-11-11] MEDS: mupirocin 2% ointment 22GM ONE (13:54)
[2023-11-11] MEDS: epiNEPHrine 1 mg/ml 30ml MDV ONE (13:55)
[2023-11-11] MEDS: tranexamic acid 100mg/ml inj. ONE (13:56)
[2023-11-11] MEDS: acetaminophen 1,000mg/100ml IV 100 ML IV ONE (14:30)
[2023-11-11] MEDS: meperidine/PF 25mg/ml syringe IV PRN (14:31)
[2023-11-11] MEDS ORDERED: salt irrigation nasal spray 45 ML SPRAY NS PRN (15:15)
== END 2023-11-11 16:42 | disposition home or self-care (01) ==
LOC: PAS 10:34
PROVIDERS: ATTEND Otolaryngology
DX: J32.9 Chronic sinusitis, unspecified (principal); J33.8 Other polyp of sinus; I44.4 Left anterior fascicular block; I11.9 Hypertensive heart disease without heart failure; E03.9 Hypothyroidism, unspecified; K21.9 Gastro-esophageal reflux disease without esophagitis; I20.9 Angina pectoris, unspecified; I25.2 Old myocardial infarction; N40.0 Benign prostatic hyperplasia without lower urinary tract symptoms; Z87.891 Personal history of nicotine dependence; Z79.2 Long term (current) use of antibiotics; Z79.890 Hormone replacement therapy; Z79.899 Other long term (current) drug therapy; Z98.890 Other specified postprocedural states
CPT/HCPCS: 31259; 31267; 31276; 61782; 82948; 87070; 87075; 93005; A6402; J0131; J0171; J0690; J1100; J2175; J2250; J2405; J2704; J3010; J3490; J7030; J7050; J7120; Z7506; Z7508; Z7512; A4618; A6449; A7000

== ENCOUNTER 2025-05-04 13:31 | Outpatient (CLI) | payer MEDICARE, OTHER ==
[~2025-05-04 13:31] MED LIST changes: -FLO0.4C PO; -ONDA4TAB12 PO; +TAMS-55 PO
[2025-05-04 14:11] LABS: MEAN PLATELET VOLUME 9.2 FL (7.4-10.4); RED CELL DISTRIBUTION WIDTH 14.4 % (11.5-14.5)
[2025-05-04 14:38] LABS: CHOL/HDL RATIO 4.0 (0.00-4.99); CREATININE 0.80 MG/DL (0.60-1.10); LDL CHOLESTEROL 95 MG/DL (50-100); TOTAL CARBON DIOXIDE 26.3 MMOL/L (24-32); eGFR > 90 ML/MIN
--- NOTE | 2025-05-04 15:43 | RADIOLOGY REPORT ---
CLINICAL INDICATION: GANGLION,JOINT TECHNIQUE: DI HAND, COMPLETE (3VW MIN) Comparison: ANKLE, COMPLETE(3VW MIN) on DOS: 03/06/21, FOOT, COMPLETE (3VW MIN) on DOS: 03/06/21, FOOT, C OMPLETE (3VW MIN) on DOS: 03/06/21 FINDINGS/IMPRESSION: : There is no evidence of acute fracture or dislocation. Soft tissues are unremarkable. Diffuse osteopenia. Diffuse degenerative change.
== END 2025-05-04 23:59 | disposition home or self-care (01) ==
LOC: RAD 13:31
PROVIDERS: ATTEND Nurse Practitioner Family
DX: M19.042 Primary osteoarthritis, left hand (principal); M85.89 Other specified disorders of bone density and structure, multiple sites; M67.442 Ganglion, left hand; N40.1 Benign prostatic hyperplasia with lower urinary tract symptoms; I10 Essential (primary) hypertension; E83.119 Hemochromatosis, unspecified; E78.5 Hyperlipidemia, unspecified; R73.09 Other abnormal glucose; R73.03 Prediabetes
CPT/HCPCS: 73130; 80053; 80061; 83036; 84153; 84154; 85025

== ENCOUNTER 2025-09-08 13:24 | Outpatient (CLI) | payer MEDICARE, OTHER ==
[2025-09-08 15:01] LABS: % IRON SATURATION 89 % (11-46)
== END 2025-09-08 23:59 | disposition home or self-care (01) ==
LOC: LAB 13:24
PROVIDERS: ATTEND Nurse Practitioner Family
DX: E83.119 Hemochromatosis, unspecified (principal)
CPT/HCPCS: 36415; 82607; 82728; 82746; 83540; 83550